=== PATIENT | female | born 1985 | race Caucasian/White ===

== ENCOUNTER 2018-11-26 15:24 | Emergency (ER) | payer OTHER, SELFPAY ==
[2018-11-26 15:36] VITALS: BP 110/89; PULSE 94; RESP 16; TEMP 36.6; O2SAT 97
--- NOTE | 2018-11-26 15:52 | ED.GENADUL_ITS ---
Discharge Plan Disposition Patient Disposition: HOME Condition: Improving Discharge Details Chief Complaint: Orthopedic Clinical Impression: Right ankle sprain Primary Care Provider: Walter Gannon ED Provider: Saleem Greenberg Home Meds and New Rx's Prescriptions: Continued ibuprofen 600 mg Tablet 600 mg PO PRN PRNRF: 0 No Action acetaminophen [Tylenol Extra Strength] 500 mg Tablet 1,000 mg PO PRN PRNRF: 0 Discharge Instructions Instructions: Ankle Sprain (ED) Additional Instructions: Elevate and ice to reduce pain and swelling. May continue ibuprofen 800 mg every 8 hours, take with food. May use the hydrocodone as needed for severe breakthrough pain. Use crutches and walking boot until he can use the walking boot without pain, then begin to wean from the walking boot as we discussed over approximately 1 week's time. Return for any acute concern Medical Decision Making 33-year-old female presents with right ankle pain after rolling her foot while at work. She took [id number] medicines, presented to the ED for ongoing pain. X-ray does not reveal underlying bony injury. Consistent with talofibular ligament sprain. Discussed with her home management including use of a walking boot and crutches as needed. She understands progression of wean ing from immobilization. HPI General Mode of arrival: ambulatory . Date/Time Provider Initiated Documentation: 11/26/18 15:41 . Limitations to Documentation: no limitations . Information obtained by: patient . History of Present Illness 33 year old F presents to the emergency department with the chief complaint of Right ankle pain after rolling it, described as moderate, Quality is described as dull, and is localized to the right and lower extremity. Patient reports no radiation. Patient started experiencing this hour(s) and it has been constant. No relieving factors improve symptom(s), Other factors that worsen symptoms (Weightbearing) . Patient notes no other symptoms.. Patient did receive the following treatments prior to arrival, NSAID Related Data Home Medications Medication Instructions Recorded Confirmed acetaminophen [Tylenol Extra 1,000 mg PO PRN PRN 11/26/18 11/26/18 Strength] ibuprofen 600 mg PO PRN PRN 11/26/18 11/26/18 Allergies Allergy/AdvReac Type Severity Reaction Status Date / Time kiwi Allergy Intermediate tongue Unverified 11/26/18 15:41 [facility] General Stated Complaint: Orthopedic FUNMI: 4 Review of Systems Review of Systems No numbness or tingling, no other injury, 6 systems reviewed and otherwise negative [facility] Surgical History Appendectomy Tonsillectomy Social History Smoking/Tobacco Use Status: Former Tobacco Use Drug use: Never Exam Narrative Exam Narrative: GEN: awake, alert, oriented 3. Pleasant, well groomed, interactive. HEAD: Normocephalic, atraumatic ENT: Mucous membranes moist, oropharynx unremarkable, External ear exam unremarkable EYES: PERRL, EOMI EXT: Full ROM, right lateral malleoli tenderness. Palpable DP Neuro: Grossly normal neurologic exam, conversant, interactive. Psych: Speech fluent, thoughts congruent, affect normal Course Vital Signs Temperature 36.6 C 11/26/18 15:36 Pulse 94 H 11/26/18 15:36 Respiratory Rate 16 11/26/18 15:36 Blood Pressure 110/89 11/26/18 15:36 Pulse Oximetry 97 11/26/18 15:36 Temperature 36.6 C 11/26/18 15:36 Temperature Source Temporal Artery Scan 11/26/18 15:36 Pulse 94 H 11/26/18 15:36 Respiratory Rate 16 11/26/18 15:36 Blood Pressure 110/89 11/26/18 15:36 Blood Pressure Position Sitting 11/26/18 15:36 Pulse Oximetry 97 11/26/18 15:36 Oxygen Delivery Method Room Air 11/26/18 15:36 Oxygen Flow Rate 0 11/26/18 15:36 Pain Level 6 11/26/18 15:36
--- NOTE | 2018-11-26 16:05 | DI.RAD_ITS ---
SYMPTOMS/DIAGNOSIS: PAIN S/P ROLLING ANKLE RIGHT ANKLE: No fracture or ankle mortise widening is seen. IMPRESSION: Negative right ankle.
[2018-11-26] MEDS: HYDROcodone 5/Acetaminophen 325 TAB PO (16:37)
[2018-11-26 16:38] VITALS: BP 110/89; PULSE 94; RESP 16; TEMP 36.6; O2SAT 97
--- NOTE | 2018-11-26 16:50 | DI.VRAD_ITS ---
EXAM: XR Right Ankle EXAM DATE/TIME: 11/26/2018 4:06 PM CLINICAL HISTORY: 33 years old, female; Patient HX: Right ankle pain after rolling right ankle today. Lateral right ankle pain. TECHNIQUE: Imaging protocol: XR Right ankle. Views: 3 or more views. COMPARISON: No relevant prior studies available. FINDINGS: Bones/joints: Normal. Soft tissues: Normal. IMPRESSION: No acute findings. Dictated and Authenticated by: Mario Metz MD. Ordering:NICKY Monge MD
== END 2018-11-26 16:42 | disposition home or self-care (01) ==
PROVIDERS: Emergency Provider Emergency Medicine; PCP Family Medicine
DX: S93.491A Sprain of other ligament of right ankle, initial encounter (principal); X50.9XXA Other and unspecified overexertion or strenuous movements or postures, initial encounter
CPT/HCPCS: 29515; 99283; 73610; E0114; L4361

== ENCOUNTER 2019-04-08 16:32 | Emergency (ER) | payer SELFPAY ==
[2019-04-08 16:38] VITALS: BP 131/95; PULSE 100; RESP 16; TEMP 36.7; O2SAT 100
--- NOTE | 2019-04-08 17:00 | W.ED.GENAD ---
Discharge Plan Disposition Patient Disposition: HOME Condition: Good Discharge Details Chief Complaint: EarProblem Clinical Impression: Acute ear pain, Sinusitis Primary Care Provider: Walter Gannon ED Provider: Meghna Garner Home Meds and New Rx's Prescriptions: New amoxicillin-pot clavulanate [Augmentin] 875-125 mg tablet 1 tab PO BID Qty: 20 RF: 0 valacyclovir [Valtrex] 1 gram tablet 1,000 mg PO TID Qty: 21 RF: 0 ofloxacin 0.3 % drops 10 drp OT DAILY 7 Days RF: 0 tramadol [Ultram] 50 mg tablet 50 mg PO Q8H PRN (Reason: pain) Qty: 2 RF: 0 No Action acetaminophen [Tylenol Extra Strength] 500 mg Tablet 1,000 mg PO PRN PRNRF: 0 ibuprofen 600 mg Tablet 600 mg PO PRN PRNRF: 0 Discharge Instructions Instructions: Sinusitis (ED), Earache (ED) Additional Instructions: Use antibiotic as prescribed both by mouth and topically. When using the drops in the ear lay on your side allowing the medicine to pool in your ear for approximately 15 to 20 minutes once daily. Use Motrin or Tylenol for soreness if needed. Use antiviral medications as prescribed. Use pain medication only if needed for severe pain at night to help assist with sleeping. Do not drive, drink alcohol, work while taking this medication. This will cause drowsiness. Follow-up closely with ear nose and throat doctor for reevaluation as discussed for concern of possible development of shingles in the ear. Return to the emergency room for any worsening or concerns sooner if needed. Have prompt reevaluation with PCP Stand Alone Forms: Work Release Referrals: Albert Chapa DO [OSTEOPATHIC DOCTOR] - Medical Decision Making Is a 33-year-old patient who presents for complaints of left ear pain associated with left facial pain, tingling and burning. Patient denies injury or trauma. Patient denies fevers or chills. Patient does report her daughter was sick with strep throat. Patient did report a sore throat recently, last week for which she did have a throat swab performed which was negative for strep. Patient reports laryngitis. Patient denies headache or dizziness. Patient denies nasal congestion. Denies cough, difficulty breathing shortness of breath or wheezing. Denies any other upper respiratory symptoms. Patient does have a history of shingles for which she had a very similar presentation of pain associated with tingling and burning of one half of her face. Patient is concerned with the possibility of shingles as this does feel quite similar. Patient has no skin changes at this time. Patient does report notable left ear pain. On exam patient has full symmetrical motion of her face but she does have mild external ear canal erythema. No obvious lesions are present at this time. Patient does have pain with tragal movement, patient is also quite sensitive to touch of the skin through her forehead and cheek. Patient is not ill-appearing at this time. Given patient's onset of sore throat approximately 1 week ago I am concerned that patient could have sinus infection developing therefore will provide Augmentin for sinusitis coverage, will also give ofloxacin due to ear canal erythema. Sinus infection or possible external ear infection remain in the differential however patient does report a notable tingling and burning of the face and does have mild erythema of the external canal. I did discuss the possibility of shingles. Patient does report this is similar to her previous presentation of single shingles on the contralateral side of her face. I do feel is most appropriate to also provide Valtrex at this time for the possibility of developing shingles. I have strongly encourage this patient evaluate her ear with ENT for concern of ear involvement. Patient is requesting pain medication as she is having difficulty managing the discomfort. Have provided her 2 tablets of Ultram which she feels comfortable using at night. Although it is difficult at this time to determine the specific etiology of patient's pain we have discussed at length the possibility of sinus infection, neurologic inflammation, or shingles. Early Flores's palsy remains a possibility however she describes more pain than would be expected with Flores's palsy. Patient does not appear meningeal at this time. Patient does not appear ill at this time. Patient agrees with plan of care both antibiotics and Valtrex to use at this time. Patient agrees with plan of care for close follow-up with ENT. Alarming signs and symptoms for which patient should return were discussed. HPI General Date/Time Provider Initiated Documentation: 04/08/19 16:38. HPI Narrative: Is a 33-year-old patient presents for complaints of left ear pain. Patient reports left ear pain which began in the last 24 hours. Patient reports tingling noted to the left side of her face. Patient reports severe pain with even light touch to the skin. Patient reports a burning type discomfort. Patient reports pain is constant. Patient reports this is very similar to presentation of previous shingles. Patient is concerned with the possibility of shingles. Reports shooting pain into the left ear. Patient denies any drainage from the ear. No injury or trauma to the ear. No rash at this time. However patient does also report sore throat last week for which she did have a strep test which was negative, daughter at home with positive strep. Patient does report a hoarse voice which has began in the last few days. Patient denies nasal congestion. Sinus pain is present on the left. Patient denies significant headache or dizziness. Denies any vision change or blurred vision. Patient denies neck pain or pain with range of motion of neck. Patient denies cough, difficulty breathing shortness of breath or wheezing. Denies fevers, chills, nausea, vomiting. Related Data Home Medications Medication Instructions Recorded Confirmed acetaminophen [Tylenol Extra 1,000 mg PO PRN PRN 11/26/18 04/08/19 Strength] ibuprofen 600 mg PO PRN PRN 11/26/18 04/08/19 amoxicillin-pot clavulanate 1 tab PO BID #20 tab 04/08/19 [Augmentin] ofloxacin 10 drp OT DAILY 7 Days ml 04/08/19 tramadol [Ultram] 50 mg PO Q8H PRN #2 tab 04/08/19 valacyclovir [Valtrex] 1,000 mg PO TID #21 tab 04/08/19 Previous Rx's Medication Instructions Recorded amoxicillin-pot clavulanate 1 tab PO BID #20 tab 04/08/19 [Augmentin] ofloxacin 10 drp OT DAILY 7 Days ml 04/08/19 tramadol [Ultram] 50 mg PO Q8H PRN #2 tab 04/08/19 valacyclovir [Valtrex] 1,000 mg PO TID #21 tab 04/08/19 Allergies Allergy/AdvReac Type Severity Reaction Status Date / Time kiwi Allergy Intermediate tongue Unverified 04/08/19 16:55 swells -hives General Stated Complaint: EarProblem FUNMI: 3 Review of Systems All systems reviewed & are unremarkable except as noted in HPI and below Constitutional Constitutional: Denies fatigue, Denies fever(s), Denies headache(s), Denies malaise and Denies weakness Eyes Eyes: Denies change in vision, Denies diplopia, Denies eye discharge, Denies seeing flashes and Denies photophobia ENT Ears, Nose, Mouth, and Throat: Denies abnormal hearing, Denies dental pain, Denies vertigo, Denies dizziness, Denies ear discharge, Reports otalgia, Reports facial pain, Denies headache(s), Denies nasal congestion, Denies neck pain, Denies post nasal drip, Reports sinus pain, Denies sinus pressure, Reports sore throat and Denies throat swelling Cardiovascular Cardiovascular: Denies dyspnea Respiratory Respiratory: Denies cough, Denies dyspnea and Denies wheezing Gastrointestinal Gastrointestinal: Denies abdominal pain, Denies diarrhea, Denies nausea and Denies vomiting Musculoskeletal Musculoskeletal: Denies neck pain and Reports tingling Neurologic Neurologic: Denies abnormal hearing, Denies abnormal movements, Denies abnormal speech, Denies behavioral changes, Reports burning sensations, Denies vertigo, Denies dizziness, Denies headache(s), Denies lack of coordination, Denies focal weakness, Denies other visual disturbances, Reports tingling and Denies weakness Psychiatric Psychiatric: Denies behavioral changes Endocrine Endocrine: Denies fatigue Allergic/Immunologic Allergic/Immunologic: Denies throat swelling and Denies wheezing ON LICENSE OF [facility] Social History Smoking/Tobacco Use Status: Former Tobacco Use Alcohol Intake: never Drug use: Never Substance use type: does not use Exam Narrative Exam Narrative: CONST: Healthy appearing patient, in no acute distress. Well hydrated. Alert and alert. HENMT: Head nomocephalic, normal to inspection. Atraumatic. Hearing grossly normal. Pain with light sensation through the left cheek and near the ear. Patient has external ear canal erythema without obvious wounds. TM appears normal bilaterally. Pain with tragal tug noted. Mild pain with palpation of the left sinus. No skin changes. Mild pharyngeal erythema present without exudate or tonsillar swelling. Geographic tongue noted. No facial asymmetry or weakness EYES: General normal appearance. Alignment normal. Eyelids normal. Conjunctiva normal. Extraocular movements intact without pain NECK: Normal visual inspection. FROM. Trachea midline. No Midline tenderness. Cervical lymphadenopathy present. No meningeal signs MUSCULOSKELETAL: Normal Gait. FROM of all extremities. SKIN: Normal. Dry. No rashes. NEURO: Alert and awake. Speech clear. PSYCH: Normal affect. Cooperative. Course Vital Signs Vital signs: Vital Signs Temperature 36.7 C 04/08/19 16:38 Pulse 100 H 04/08/19 16:38 Respiratory Rate 16 04/08/19 16:38 Blood Pressure 131/95 H 04/08/19 16:38 Pulse Oximetry 100 04/08/19 16:38 Temperature 36.7 C 04/08/19 16:38 Temperature Source Skin 04/08/19 16:38 Pulse 100 H 04/08/19 16:38 Respiratory Rate 16 04/08/19 16:38 Respiratory Effort Non-Labored 04/08/19 16:38 Blood Pressure 131/95 H 04/08/19 16:38 Blood Pressure Position Sitting 04/08/19 16:38 Pulse Oximetry 100 04/08/19 16:38 Oxygen Delivery Method Room Air 04/08/19 16:38 Oxygen Flow Rate 0 04/08/19 16:38 Pain Level 9 04/08/19 16:38
--- NOTE | 2019-04-09 09:02 | NUR.NOTE ---
Nursing Note: Referral and provider note faxed to ENT for follow up. Ele Mcknight.
== END 2019-04-08 17:25 | disposition home or self-care (01) ==
PROVIDERS: Emergency Provider Physician Assistant; PCP Family Medicine
DX: H92.02 Otalgia, left ear (principal); J01.90 Acute sinusitis, unspecified; R20.2 Paresthesia of skin; J04.0 Acute laryngitis
CPT/HCPCS: 99283

== ENCOUNTER 2019-05-15 08:37 | Outpatient (CLI) | payer OTHER, SELFPAY ==
[2019-05-15 09:50] LABS: TSH (W/Ref FT4) 3.28 uIU/mL (0.36-3.74)
== END 2019-05-15 08:57 ==
PROVIDERS: PCP Family Medicine; Visit Provider Family Medicine
DX: E03.9 Hypothyroidism, unspecified (principal)
CPT/HCPCS: 36415; 84443

== ENCOUNTER 2019-07-20 22:31 | Emergency (ER) | payer OTHER, SELFPAY ==
[2019-07-20 22:43] VITALS: BP 116/74; PULSE 96; RESP 20; TEMP 36.6
--- NOTE | 2019-07-20 22:57 | NUR.NOTE ---
Nursing Note: Pt offered test by AMALIA Martel prior to xray. Pt refused. States she is on her period now and is not
--- NOTE | 2019-07-20 23:14 | DI.RAD_ITS ---
EXAM: XR FOOT RT COMPLETE CLINICAL HISTORY: pain, 3, 4, 5th digits. TECHNIQUE: 2D digital imaging was performed. COMPARISON: LEFT FOOT COMPLETE from 11/04/2013 FINDINGS: BONES: Is a lucency seen extending transversely across the distal phalanx of the 5th toe. There is f usion between the middle and distal phalanges which is are seen in the contralateral foot on the 2014 exam. No bony destructive lesion is seen. JOINTS: No dislocation present. SOFT TISSUE: Normal. IMPRESSION: Question of a nondisplaced fracture of the distal phalanx of the 5th toe. DATA REPOSITORY: RADIATION DOSE DELIVERED:
--- NOTE | 2019-07-20 23:20 | DI.VRAD_ITS ---
PROCEDURE INFORMATION: Exam: XR Right Foot Complete Exam date and time: 07/20/2019 11:09 PM Age: 33 years old Clinical indication: Foot; Right; Patient HX: Patient stubbed toe, , pain in 3-5 toes. TECHNIQUE: Imaging protocol: XR Right foot. Views: 3 or more views. COMPARISON: CR XR ANKLE RT COMPLETE 10/27/2018 16:05 FINDINGS: Bones/joints: Normal. Soft tissues: Normal. IMPRESSION: No acute bony findings. If clinical symptoms persist recommend followup film in 7-10 days. Dictated and Authenticated by: Jennifer Stein MD. Ordering:WAYNE Coffman MD
[2019-07-20 23:45] VITALS: BP 116/74; PULSE 96; RESP 20
--- NOTE | 2019-07-21 01:21 | ED.GENADUL_ITS ---
Discharge Plan Disposition Patient Disposition: HOME Condition: Stable Discharge Details Chief Complaint: Orthopedic Clinical Impression: Contusion, Sprain of toe Primary Care Provider: Walter Gannon ED Provider: Meghna Garner Home Meds and New Rx's Prescriptions: No Action sertraline 25 mg tablet 25 mg PO DAILY Qty: 30 RF: 2 acetaminophen [Tylenol Extra Strength] 500 mg Tablet 1,000 mg PO PRN PRNRF: 0 ibuprofen 600 mg Tablet 600 mg PO PRN PRNRF: 0 Discharge Instructions Instructions: Contusion in Adults (ED) Additional Instructions: Rest. Activities as tolerated. Elevate injury to prevent swelling. Ice to the area of discomfort for 15 min. 3-5 times daily. Motrin every 8 hours with food or Tylenol every 6 hours for soreness if needed over the counter for comfort. Followup with orthopedic doctor as discussed if not improving in one week. Return for any worsening or concerns sooner if needed. Referrals: Saleem Diego MD [ [facility] STAFF PHYSICIAN] - Medical Decision Making Pleasant 33-year-old patient presents after foot trauma accidentally stubbing her toe against a Hutch. Patient is focal complaints only to the right third fourth and fifth toes of the foot. Patient has associated tenderness through this area as well as ecchymosis noted the fourth and fifth toes. There is no open wounds. No obvious deformities. Sensation intact throughout. Dorsal foot pulses are intact. Patient has no indication of injury proximal to the foot. Patient offered Tylenol and Motrin upon arrival to the emergency room but reports she did take these medications prior to arrival and does not require any additional analgesic at this time. X-rays ordered Per [facility] x-ray is read is unremarkable for acute bony injury. Patient offered eliseo taping a postoperative shoe. Patient also offered crutches and she declines use of crutches however does consent to the eliseo taping and postoperative shoe. Rice encouraged. Orthopedic follow-up encouraged if not improving appropriately. Patient reports her understanding and agrees with plan of care. The patient was stable and requested discharge. Prior to discharge, my usual and customary return precautions were reviewed with the patient - this included follow-up instructions and reasons to return to the Emergency Department if conditions worsens, does not improve as expected, or other new concerns arise. HPI General Date/Time Provider Initiated Documentation: 07/20/19 22:43 . HPI Narrative: Is a 33-year-old patient presenting the emergency room with complaints of right foot pain. Patient reports she stubbed her toe against a Hutch this morning at approximately 8:30 AM. Patient reports persistent pain with ambulation, bruising and mild swelling. Patient concerned predominantly with the third fourth and fifth toes on the right foot. Denies any other injury or concern has only focal complaints of the right foot. Patient denies any open wounds. Denies any numbness, tingling or weakness. No other concerns or complaints at this time. Related Data Home Medications Medication Instructions Recorded Confirmed acetaminophen [Tylenol Extra 1,000 mg PO PRN PRN 11/26/18 07/20/19 Strength] ibuprofen 600 mg PO PRN PRN 11/26/18 07/20/19 sertraline 25 mg tablet 25 mg PO DAILY #30 tab 05/15/19 07/20/19 Previous Rx's Medication Instructions Recorded sertraline 25 mg tablet 25 mg PO DAILY #30 tab 05/15/19 Allergies Allergy/AdvReac Type Severity Reaction Status Date / Time kiwi Allergy Intermediate tongue Unverified 07/20/19 22:48 swells -hiv General Stated Complaint: Orthopedic FUNMI: 4 Review of Systems All systems reviewed & are unremarkable except as noted in HPI and below Constitutional Constitutional: Denies weakness Musculoskeletal Musculoskeletal: Denies deformity, Reports arthralgias, Denies numbness, Denies stiffness and Denies tingling Integumentary/Breasts Skin/Breast: Denies wounds Neurologic Neurologic: Denies numbness, Denies tingling and Denies weakness [facility] Medical History Anxiety disorder (Acute) Surgical History Appendectomy Tonsillectomy Social History Smoking/Tobacco Use Status: Former Tobacco Use Alcohol Intake: never Drug use: Never Substance use type: does not use Do you feel safe at home: Yes Do you feel safe in your relationship?: Yes Exam Narrative Exam Narrative: CONST: Healthy appearing patient, in no acute distress. Well hydrated. Alert and oriented. MUSCULOSKELETAL: Focal exam right leg: No knee pain with palpation motion pain with palpation ankle pain with palpation. Achilles tendon intact and nontender. No ankle swelling noted. No bony tenderness throughout the ankle. Patient has only focal tenderness noted of the third fourth and fifth digits. There is moderate ecchymosis noted of the fourth and fifth digits. No open wounds noted. Sensation intact through all digits. Pulses intact noted the dorsal aspect of the foot. Cap refill intact throughout the digits. SKIN: Normal. Dry. No rashes. Bruising as described above NEURO: Alert and awake. Speech clear. PSYCH: Normal affect. Cooperative. Course Vital Signs Vital signs: Vital Signs Temperature 36.6 C 07/20/19 22:43 Pulse 96 H 07/20/19 22:43 Respiratory Rate 20 07/20/19 22:43 Blood Pressure 116/74 07/20/19 22:43 Temperature 36.6 C 07/20/19 22:43 Temperature Source Oral 07/20/19 22:43 Pulse 96 H 07/20/19 23:45 Respiratory Rate 20 07/20/19 23:45 Respiratory Effort 07/20/19 22:43 Blood Pressure 116/74 07/20/19 23:45 Pain Level 5 07/20/19 23:45
== END 2019-07-20 23:44 | disposition home or self-care (01) ==
PROVIDERS: Emergency Provider Physician Assistant; PCP Family Medicine
DX: S90.121A Contusion of right lesser toe(s) without damage to nail, initial encounter (principal); W22.03XA Walked into furniture, initial encounter
CPT/HCPCS: 99283; 73630

== ENCOUNTER 2019-10-05 13:31 | Outpatient (CLI) | payer SELFPAY ==
[2019-10-07 07:37] LABS: COVID-19 RT-PCR Result NEGATIVE (Negative)
== END 2019-10-05 13:51 ==
PROVIDERS: PCP Family Medicine; Visit Provider Nurse Practitioner Family
DX: Z11.59 Encounter for screening for other viral diseases (principal)
CPT/HCPCS: U0003

== ENCOUNTER 2019-11-19 14:47 | Outpatient (REF) | payer SELFPAY ==
[2019-11-19 15:22] LABS: Clarity Color Interference (Clear); Glucose Color Interference mg/dL (Negative); Ketones Color Interference mg/dL (Negative); Leukocyte Esterase Color Interference (Negative); Nitrite Color Interference (Negative); Urobilinogen Color Interference EU/dL (Up TO 0.2)
[2019-11-19 15:23] LABS: Bilirubin Color Interference (Negative); Blood Color Interference (Negative)
[2019-11-19 15:24] LABS: Bacteria Few HPF (Negative); Casts Negative LPF (Negative); Crystals Many Amorphous HPF (Negative); Epithelial Cells Moderate HPF (Negative); Mucus Moderate (Negative); WBC 0-2 HPF (0-5)
[2019-11-19 15:25] LABS: C & S Indicated? No
== END 2019-11-19 15:07 ==
LOC: LBN 14:47
PROVIDERS: PCP Family Medicine; Visit Provider Nurse Practitioner
DX: R30.0 Dysuria (principal)
CPT/HCPCS: 81003; 81015; 87086

== ENCOUNTER 2020-06-07 14:41 | Outpatient (REF) | payer BC, SELFPAY ==
[2020-06-07 15:17] LABS: Bilirubin Negative (Negative); Blood Negative (Negative); Clarity Cloudy (Clear); Glucose Negative (Negative); Ketones Negative (Negative); Leukocyte Esterase Negative (Negative); Nitrite Positive (Negative); Urobilinogen 0.2 EU/dL (Up TO 0.2)
[2020-06-07 15:36] LABS: Bacteria Packed HPF (Negative); Crystals Negative HPF (Negative); Epithelial Cells Many HPF (Negative); Mucus Negative (Negative); RBC Negative HPF (0-2)
[2020-06-07 15:37] LABS: C & S Indicated? Yes
== END 2020-06-07 14:42 | disposition home or self-care (01) ==
LOC: LBN 14:41
PROVIDERS: PCP Family Medicine; Visit Provider Family Medicine
DX: R35.0 Frequency of micturition (principal)
CPT/HCPCS: 87077; 81003; 81015; 87086; 87186

== ENCOUNTER 2021-02-10 12:05 | Outpatient (REF) | payer BC, SELFPAY ==
[2021-02-10 15:48] LABS: Bilirubin Negative (Negative); Blood Negative (Negative); Clarity Clear (Clear); Glucose Negative (Negative); Ketones Negative (Negative); Leukocyte Esterase Negative (Negative); Nitrite Negative (Negative); Specific Gravity >= 1.030 (1.005-1.025); Urobilinogen 0.2 EU/dL (Up TO 0.2)
== END 2021-02-10 12:06 | disposition home or self-care (01) ==
LOC: LBN 12:05
PROVIDERS: PCP Family Medicine; Visit Provider Family Medicine
DX: R35.0 Frequency of micturition (principal)
CPT/HCPCS: 81003

== ENCOUNTER 2021-05-30 02:12 | Outpatient (CLI) | payer BC, SELFPAY | END 2021-05-30 02:13 | disposition home or self-care (01) | LOC: LBO 02:12 | PROVIDERS: PCP Family Medicine; Visit Provider Family Medicine ==